=== PATIENT | male | born 1970 ===

== ENCOUNTER → 2019-01-07 22:15 | Outpatient (REF) | payer OTHER, SELFPAY ==
[2019-01-07 23:29] LABS: Add Manual Diff / Slide Review NO; Basophils Absolute Auto 100 /uL (0-100); Basophils Percent Auto 0.8 % (0-2); Eosinophils Absolute Auto 400 /uL (0-450); Eosinophils Percent Auto 5.8 % (2-4); Hematocrit 54.3 % (41-53); Hemoglobin 17.8 g/dL (13.5-17.5); Lymphocytes Absolute Auto 1300 /uL (1100-4500); Lymphocytes Percent Auto 20.3 % (25-40); Mean Corpuscular HGB Conc 32.8 % (30-36); Mean Corpuscular Volume 94.5 fL (80-100); Monocytes Absolute Auto 400 /uL (0-900); Monocytes Percent Auto 7.2 % (3-14); Neutrophils Absolute Auto 4100 /uL (1500-7000); Neutrophils Percent Auto 65.9 % (50-75); Platelet Count 246 X10^3/uL (150-400); Red Blood Cell Count 5.74 X10^6/uL (4.5-5.9); White Blood Cell Count 6.2 X10^3/uL (4.5-11.0)
[2019-01-10 15:16] LABS: PSA Total 0.75 ng/mL (< 4.01)
[2019-01-10 16:05] LABS: Estradiol 48 pg/mL (< 40)
== END ==
LOC: LAB 22:15
PROVIDERS: Visit Provider Naturopath
DX: E29.1 Testicular hypofunction (principal); Z13.89 Encounter for screening for other disorder
CPT/HCPCS: 36415; 82670; 84153; 84154; 84270; 84402; 84403; 85025